=== PATIENT | male | born 2000 | race Caucasian/White ===

== ENCOUNTER 2021-01-05 13:18 | Emergency (ER) | payer OTHER ==
[~2021-01-05] VITALS: Ht 180.3 cm; Wt 68.0 kg
[2021-01-05 13:22] VITALS: BP 135/78
[2021-01-05 14:00] LABS: APPEARANCE,URINE Turbid (CLEAR); BILIRUBIN,URINE Negative (NEGATIVE); COLOR,URINE Yellow (YELLOW); GLUCOSE, URINE (UA) Negative (NEGATIVE); KETONES,URINE Trace mg/dL (NEGATIVE); LEUKOCYTE ESTERASE ,URINE Negative (NEGATIVE); NITRATE,URINE Negative (NEGATIVE); OCCULT BLOOD,URINE Negative (NEGATIVE); PH,URINE 7.5 (5.0-8.0); PROTEIN,URINE Negative (NEGATIVE)
[2021-01-05 14:19] LABS: AMORPHOUS SEDIMENT,UR Moderate /LPF (None Seen); BACTERIA,URINE Moderate /HPF (None Seen); RBC,URINE None Seen /HPF (0-1); SQUAMOUS EPITHELIAL CELL,UR None Seen /HPF (0-2); WBC,URINE 0-1 /HPF (0-1)
[2021-01-05 16:28] VITALS: BP 130/68
== END 2021-01-05 16:29 | disposition home or self-care (01) ==
LOC: EDH 13:18
DX: R33.9 Retention of urine, unspecified (principal); F41.9 Anxiety disorder, unspecified; Z88.1 Allergy status to other antibiotic agents
CPT/HCPCS: 81001; 87088

== ENCOUNTER 2022-07-01 11:26 | Emergency (ER) | payer OTHER ==
[~2022-07-01] VITALS: Ht 180.3 cm; Wt 63.5 kg
[2022-07-01 11:29] VITALS: BP 137/72
== END 2022-07-01 13:32 | disposition home or self-care (01) ==
LOC: EDH 11:26
DX: G89.29 Other chronic pain (principal); M54.9 Dorsalgia, unspecified
CPT/HCPCS: 99281

== ENCOUNTER 2024-03-05 11:24 | Emergency (ER) | payer SELFPAY ==
[~2024-03-05] VITALS: Ht 180.3 cm; Wt 70.3 kg
[2024-03-05 11:35] VITALS: BP 120/79; PULSE 74; RESP 18; TEMP 98.2
[2024-03-05] MEDS: HYDROcodone/APAP 5/325 1 TAB TABLET PO STA (12:17)
[2024-03-05] MEDS: dexaMETHasone SOD PHOSPHATE 4 MG/ML 1ML VIAL IVP STA (12:17)
[2024-03-05] MEDS: methoCARBamol 500 MG TABLET PO STA (12:17)
[2024-03-05] MEDS: ketOROlac 15MG/ML VIAL (15MG/ML) IM STA (12:18)
[2024-03-05] MEDS ORDERED: METH-811 PO (13:18)
[2024-03-08] MEDS ORDERED: ACET-66 PO (12:16)
[2024-03-08] MEDS ORDERED: IBUP-2077 PO (20:29)
[2024-03-08] MEDS ORDERED: CLIN-141 PO (20:29)
== END 2024-03-05 14:07 | disposition home or self-care (01) ==
LOC: EDH 11:24
DX: G89.29 Other chronic pain (principal); M54.2 Cervicalgia; M54.89 Other dorsalgia; Z88.8 Allergy status to other drugs, medicaments and biological substances
CPT/HCPCS: 99284; 96374; 96372; J1100; J1885

== ENCOUNTER 2024-05-07 21:16 | Emergency (ER) | payer SELFPAY ==
[~2024-05-07] VITALS: Ht 180.3 cm; Wt 74.8 kg
[~2024-05-07 21:16] MED LIST: ACET-66 PO; CLIN-141 PO; IBUP-2077 PO; METH-811 PO
[2024-05-07] MEDS: acetaMINOPHEN 500 MG TABLET PO ONE (22:47)
[2024-05-07] MEDS: ORPHENADRINE 60MG/2ML IM ONE (22:48)
[2024-05-07] MEDS: TRIAMCINOLONE ACETONIDE 40 MG/ML 1ML VIAL IM ONE (22:48)
--- NOTE | 2024-05-07 23:04 | NUR ---
TRANSFERED CARE TO [facility] AT THIS TIME
--- NOTE | 2024-05-07 23:40 | ERN ---
ED Note History of Present Illness Stated Complaint: C/O BACK AND NECK PAIN Chief Complaint: Back Pain or Injury Time Seen by MD: 21:24 Time Seen by Midlevel: 21:24 Dictation: The patient is a 23-year-old male with a history of TBI who presents to the emergency department with complaints of low back pain, low neck pain, upper back pain onset two days ago. Patient reports he had an accident six years ago that caused him to have chronic pain but pain became worse two days ago. Patient denies any recent injury or trauma. Patient reports he has pain everyday since the accident. States he follows up in [place] or if they done multiple exams and MRIs. They told him he had a problem with his lower back. Patient denies any fecal or urinary incontinence. Denies any other complaints. Allergies: Coded Allergies: ceftriaxone (Unverified Allergy, Unknown, 01/05/21) Home Meds Active Scripts Ibuprofen (Ibuprofen 800 mg Tab) 800 Mg Tab, 800 MG PO Q8H PRN for fever or pain, #30 TAB 0 Refills Prov:IAM MONTERROSO NP 03/08/24 Clindamycin HCl (Clindamycin HCl) 300 Mg Capsule, 1 CAP PO QID for 10 Days, #40 CAP 0 Refills Prov:IAM MONTERROSO NP 03/08/24 Acetaminophen (Tylenol) 500 Mg Tab, 1 TAB PO Q6HPRN PRN for pain or fever for 5 Days, #30 TAB 0 Refills Prov:CARIN NOLAN MD 03/08/24 Methocarbamol (Methocarbamol) 500 Mg Tablet, 1 TAB PO TID for 10 Days, #30 TAB 0 Refills Prov:ARIADNA LEE NP 03/05/24 Past Medical History Past Medical History: Asthma Additional Past Medical Hx: BACK AND NECK PAIN Surgical History: Other Surgical History Other: None Social History: Lives with family RN Note Reviewed/Agreed w/PFSH: Yes Review of System Dictation Constitutional: Negative for fever,chills, and weight loss Eyes: Negative for injury, pain,redness, and discharge ENT: Negative for injury,pain or swelling Cardiovascular: Negative for chest pain, palpitations, and edema Respiratory: Negative for shortness of breath, cough, and wheezing, Abdomen/GI: Negative for abdominal pain, nausea, vomiting, diarrhea, and constipation Back: Negative for injury and pain : Negative for injury, bleeding and discharge MS/Extremity: Negative for injury and deformity positive for low back pain Skin: Negative for rash, and discoloration Neuro: Negative for headache, weakness, numbness, tingling, and seizure Psych: Negative for suicide ideation, homicidal ideation, and hallucinations Initial Vital Sign VS Vital Signs Date Time Temp Pulse Resp B/P (MAP) Pulse Ox O2 Delivery O2 Flow Rate FiO2 05/07/24 21:20 98.4 82 20 144/94 99 Room Air 05/07/24 21:42 0 21 Physical Exam Dictation Vital Signs reviewed General Appearance: Alert, oriented x 3, no acute distress, well developed, nourished. Head and Face: non-traumatic. Eyes: PERRL, pink conjunctivas, eyelid no trauma, anterior chamber with arcus s enilis. Ears: Pinnas intact and no signs of trauma or erythema ear canals clear and no discharge TM no erythema Nose: No discharge, no bleeding. Oropharynx: Mouth normal, tongue pink. pharynx clear,no erythema, tonsils no exudates, no abscesses noted, mucous membrane moist Neck: Supple, non-tender, no thyromegaly, no masses, no JVD, no bruits Breast:Deferred Chest:No tenderness, no crepitus, no paradoxical movement, no retractions Lungs:Clear, well-ventilated, symmetric, no rales, no wheezing, no rhonchi, no stridor, good breath sounds bilaterally Heart: Regular rate, regular rhythm, no murmur, no gallops Vascular: no peripheral edema, dorsalis pedis 3+ bilaterally Abdomen: Soft, positive bowel sounds, nondistended, no guarding, nontender, no rebound, no masses no hepatomegaly, no splenomegaly, no Moreira's sign, no hernias. Rectal: Deferred Genital: Deferred Neurological: Normal speech, motor function intact, sensory function intact Musculoskeletal: Neck nontender, full range of motion, back nontender, full range of motion, no deformities, Extremities: nontender, full range of motion Skin: Color pink, dry, no turgor, no rash, no lacerations, no abrasions, no contusions. Lymphatic: Deferred Results (Laboratory/Radiology) Labs Reviewed?: Yes ED Course ED Course Orders Procedure Category Date Status Time Orphenadrine Citrate PHA 05/07/24 Complete (Norflex) 22:00 Triamcinolone Acet PHA 05/07/24 Complete 40mg/Ml 1ml (Kenalog 22:00 Acetaminophen 500mg PHA 05/07/24 Complete Tab (Tylenol 500mg T 22:00 Current Medications Medications (Trade) Dose Ordered Sig/Dwayne Route PRN Reason Start Time Stop Time Status Last Admin Dose Admin Acetaminophen (TYLenol 500MG TAB) 1,000 mg ONCE ONCE PO 05/07/24 22:00 05/07/24 22:07 DC 05/07/24 22:47 Orphenadrine Citrate (Norflex) 60 mg ONCE ONCE IM 05/07/24 22:00 05/07/24 22:07 DC 05/07/24 22:48 Triamcinolone Acetonide (Kenalog 40) 40 mg ONCE ONCE IM 05/07/24 22:00 05/07/24 22:07 DC 05/07/24 22:48 Vital Signs Date Time Temp Pulse Resp B/P (MAP) Pulse Ox O2 Delivery O2 Flow Rate FiO2 05/07/24 23:42 98.2 59 17 130/90 99 Room Air* 0 21 05/07/24 21:42 98.4 82 16 144/94 98 Room Air* 0 21 05/07/24 21:20 98.4 82 20 144/94 99 Room Air Medical Decision Making MDM The patient is a 23-year-old male with a history of TBI who presents to the emergency department with complaints of low back pain, low neck pain, upper back pain onset two days ago. Patient reports he had an accident six years ago that caused him to have chronic pain but pain became worse two days ago. Patient denies any recent injury or trauma. Patient reports he has pain everyday since the accident. States he follows up in [place] or if they done multiple exams and MRIs. They told him he had a problem with his lower back. Patient denies any fecal or urinary incontinence. Denies any other complaints. Patient with chronic back pain. No acute trauma. Patient has been here multiple times for same complaint. Patient reports pain is improving. Continues in no distress. Agrees to be discharged and follow up with PCP and pain management in [place]. Differential diagnosis: Chronic back pain, sciatic nerve pain, muscle spasm Need for hospitalization: Patient does not meet criteria for hospitalization. There are no social concerns with this patient. DX & DISP Disposition: Discharge Departure Impression: Primary Impression: Chronic back pain Condition: Stable Additional Instructions: Please follow up with your primary doctor in 1-2 days. Follow up with your specialists FOLLOW-UP WITH PRIMARY CARE PROVIDER IN 1 TO 2 DAYS. TAKE MEDICATIONS DIRECTED HERE IN THE EMERGENCY ROOM. OKAY TO CONTINUE HOME MEDICATIONS UNLESS OTHERWISE DISCUSSED DURING YOUR VISIT IN THE EMERGENCY ROOM TODAY. RETURN TO YOUR NEAREST EMERGENCY ROOM IF SYMPTOMS WORSEN OR IF THERE IS NO IMPROVEMENT. CALL 911 IF YOU NEED IMMEDIATE ASSISTANCE. TAKE TYLENOL [id number] NEEDED AND IF NO CONTRAINDICATIONS ARE PRESENT. INCREASE ORAL HYDRATION. A WOUND CULTURE OR URINE CULTURE WAS ORDERED HERE IN THE EMERGENCY ROOM DEPARTMENT PLEASE FOLLOW-UP WITH PRIMARY CARE PROVIDER AND ADVISE THEM TO GET REPEAT PORTS FROM OUR FACILITY. IF YOU HAD ANY SANJAY WRAP/SPLINTS THAT WERE APPLIED HERE, PLEASE DO NOT REMOVE THEM UNTIL YOU SEE YOUR PRIMARY CARE OR SPECIALTY. Referrals: SELF,REFERRAL (PCP) Time of Disposition: 23:38 I have reviewed the case, and I agree with, Diagnosis and Plan ATTESTATION BY PHYSICIAN I PERFORMED THE SUBSTANTIVE PORTION OF THE VISIT. I HAVE REVIEWED AND PERSONALLY MADE AND APPROVED THE MANAGEMENT PLAN THAT IS DOCUMENTED IN THE NOTE BY MYSELF FOR THE A PP. I ACKNOWLEDGED FOR RESPONSIBILITY FOR THE PATIENT'S MANAGEMENT PLAN. TAWANNA RODRIGUEZ May 07, 2024 23:40 CARIN NOLAN MD May 09, 2024 19:42
[2024-05-07 23:42] VITALS: BP 130/90; PULSE 59; RESP 17; TEMP 98.3; O2SAT 99
== END 2024-05-08 00:25 | disposition home or self-care (01) ==
LOC: EDH 21:16
DX: G89.29 Other chronic pain (principal); M54.50 Low back pain, unspecified; J45.909 Unspecified asthma, uncomplicated; Z79.899 Other long term (current) drug therapy; Z88.1 Allergy status to other antibiotic agents; Z98.890 Other specified postprocedural states
CPT/HCPCS: 99284; 96372 ×2; J3301; J2360

== ENCOUNTER 2024-11-05 11:53 | Emergency (ER) | payer SELFPAY ==
[~2024-11-05] VITALS: Ht 180.3 cm; Wt 77.1 kg
[2024-11-05 11:58] VITALS: BP 130/70; PULSE 65; RESP 20; TEMP 99; O2SAT 98
[2024-11-05] MEDS ORDERED: ALBU18HF7 IH (12:10)
--- NOTE | 2024-11-05 12:10 | ERN ---
General Chief Complaint: Adult-Asthma Stated Complaint: ASTHMA Time Seen by MD: 11:54 Source: patient History of Present Illness Initial Comments Patient is a 24-year-old male coming in to be evaluated for asthma exacerbation. Per patient he ran out of his inhaler in his here for further evaluation. Patient states he has not followed up with the PCP yet. Allergies: Coded Allergies: ceftriaxone (Unverified Allergy, Unknown, 01/05/21) Home Meds Active Scripts Ibuprofen (Ibuprofen 800 mg Tab) 800 Mg Tab, 800 MG PO Q8H PRN for fever or pain, #30 TAB 0 Refills Prov:IAM MONTERROSO NP 03/08/24 Clindamycin HCl (Clindamycin HCl) 300 Mg Capsule, 1 CAP PO QID for 10 Days, #40 CAP 0 Refills Prov:IAM MONTERROSO NP 03/08/24 Acetaminophen (Tylenol) 500 Mg Tab, 1 TAB PO Q6HPRN PRN for pain or fever for 5 Days, #30 TAB 0 Refills Prov:CARIN NOLAN MD 03/08/24 Methocarbamol (Methocarbamol) 500 Mg Tablet, 1 TAB PO TID for 10 Days, #30 TAB 0 Refills Prov:ARIADNA LEE NP 03/05/24 Past Medical History Past Medical History: Asthma Medical History Other: BACK AND NECK PAIN Past Surgical History: None Surgical History Other: None Social History Social History: Lives with family ROS Dictation CONSTITUTIONAL: No chills, no fever, no weakness, no diaphoresis, no malaise. HEAD/FACE: No signs of trauma. EENT: No eye pain, no blurred vision, no tearing, no double vision, no ear pain, no ear discharge, no nose pain, no nasal congestion, no throat pain, no throat swelling, no mouth pain. RESPIRATORY: No cough, no orthopnea, no SOB, no stridor, no wheezing. CARDIOVASCULAR: No chest pain, no edema, no palpitations, no syncope. GASTROINTESTINAL/ABDOMINAL: No abdominal pain, no constipation, no diarrhea, no nausea, no vomiting. GENITOURINARY: No abnormal discharge, no dysuria, no frequent urination, no hematuria. No complaints of pain in the genitals. MUSCULOSKELETAL: No back pain, no gout, no joint pain, no joint swelling, no muscle pain, no muscle stiffness, no neck pain. INTEGUMENTARY: No change in color, no change in hair/nails, no dryness, no lesion, no lumps, no rash. NEUROLOGICAL/PSYCH: No anxiety, not depressed, no emotional problem, no headache, no numbness, no pre-existing deficit, no history of seizures, no tremors, no weakness. HEMATOLOGIC/LYMPHATIC: Not anemic, no history of blood clots, no apparent bleeding, no bruising, glands not swollen. All Systems Negative, Except as Noted. Physical Exam Physical Exam Dictation VITAL SIGNS: Reviewed. GENERAL APPEARANCE: Alert, oriented x3, no acute distress, obese. HEAD AND FACE: Non-traumatic. EYES: PERRL, pink conjunctivas, eyelid no trauma, anterior chamber clear. EARS: Pinnas intact and no signs of trauma or erythema. Ear canals clear and no discharge. TMs no erythema. NOSE: No discharge, no bleeding. OROPHARYNX: Mouth normal, teeth no caries, tongue pink. Pharynx clear, no erythema. Tonsils no exudates, no abscesses noted. Mucous membrane moist. NECK: Supple, non-tender, no thyromegaly, no masses, no JVD, no bruits. BREAST: Deferred. CHEST: No tenderness, no crepitus, no paradoxical movement, no retractions. LUNGS: Clear, well-ventilated, symmetric, no rales, no wheezing, no rhonchi, no stridor, good breath sounds bilaterally. HEART: Regular rate, regular rhythm, no murmur, no gallops. VASCULAR: No peripheral edema. ABDOMEN: Soft, positive bowel sounds, nondistended, no guarding, nontender, no rebound, no masses no hepatomegaly, no splenomegaly, no Moreira's sign, no hernias. RECTAL: Deferred. GENITAL: Deferred. NEUROLOGICAL: Normal speech, gross motor function intact, gross sensory function intact. MUSCULOSKELETAL: Neck nontender, full range of motion, back nontender, full range of motion. EXTREMITIES: Nontender, full range of motion. SKIN: Color pink, dry, no turgor, no rash, no lacerations, no abrasions, no contusions. LYMPHATICS: Deferred. MDM MDM: Differential diagnosis: Asthma history, medication refill, Rationale: Tests considered and ordered secondary to shared decision making include: Previous outside records reviewed: Old ER visits. Risk of complication and/or morbidity or mortality of patient management: None Medications-Per medication reconciliation Need for hospitalization: Patient does not meet criteria for hospitalization. Patient is a 24-year-old male coming in due to medication refill. Per patient he ran out of his inhaler and states he does has a history of asthma. Patient will be discharged in stable condition medication will be provided it did educate him on proper follow up PCP for long-term management of chronic conditions such as asthma. ED Course Orders Procedure Category Date Status Time Dexamethasone 4mg/Ml PHA 11/05/24 Complete 1ml Vial (Dexametha 12:00 Current Medications Medications (Trade) Dose Ordered Sig/Dwayne Route PRN Reason Start Time Stop Time Status Last Admin Dose Admin Dexamethasone Sodium Phosphate (dexaMETHasone 4MG/ML 1ML VIAL) 4 mg ONCE ONCE IM 11/05/24 12:00 11/05/24 12:01 DC Vital Signs Date Time Temp Pulse Resp B/P (MAP) Pulse Ox O2 Delivery O2 Flow Rate FiO2 11/05/24 11:58 99.0 65 20 130/70 98 Room Air* 0 21 11/05/24 11:53 99.0 69 20 133/71 99 Room Air 0 DX & DISP Disposition: Discharge Departure Impression: Primary Impression: History of asthma Additional Impression: Medication refill Condition: Stable Scripts Albuterol Sulfate (Ventolin Hfa) 90 Mcg Hfa.aer.ad 2 PUFF IH Q4HPRN PRN for wheezing for 30 Days, #18 GM 0 Refills Prov: CARIN NOLAN MD 11/05/24 Additional Instructions: FOLLOW-UP WITH PRIMARY CARE PROVIDER IN 1 TO 2 DAYS. TAKE MEDICATIONS DIRECTED HERE IN THE EMERGENCY ROOM. OKAY TO CONTINUE HOME MEDICATIONS UNLESS OTHERWISE DISCUSSED DURING YOUR VISIT IN THE EMERGENCY ROOM TODAY. RETURN TO YOUR NEAREST EMERGENCY ROOM IF SYMPTOMS WORSEN OR IF THERE IS NO IMPROVEMENT. CALL 911 IF YOU NEED IMMEDIATE ASSISTANCE. TAKE TYLENOL [id number] NEEDED AND IF NO CONTRAINDICATIONS ARE PRESENT. INCREASE ORAL HYDRATION. A WOUND CULTURE OR URINE CULTURE WAS ORDERED HERE IN THE EMERGENCY ROOM DEPARTMENT PLEASE FOLLOW-UP WITH PRIMARY CARE PROVIDER AND ADVISE THEM TO GET REPORTS FROM OUR FACILITY. IF YOU HAD ANY SANJAY WRAP/SPLINTS THAT WERE APPLIED HERE, PLEASE DO NOT REMOVE THEM UNTIL YOU SEE YOUR PRIMARY CARE OR SPECIALTY. Referrals: Referrals: SELF,REFERRAL (PCP) TORRI PENNINGTON MD Time of Disposition: 12:09 CARIN NOLAN MD Nov 05, 2024 12:10
--- NOTE | 2024-11-05 12:23 | NUR ---
unable to depart due to reg process
--- NOTE | 2024-11-05 12:49 | NUR ---
still unable to depart due to reg process
== END 2024-11-05 12:19 | disposition home or self-care (01) ==
LOC: EDH 11:53
DX: J45.901 Unspecified asthma with (acute) exacerbation (principal); Z76.0 Encounter for issue of repeat prescription; Z88.1 Allergy status to other antibiotic agents; Z79.899 Other long term (current) drug therapy
CPT/HCPCS: 99283; 96372; J1100

== ENCOUNTER 2024-11-29 16:55 | Emergency (ER) | payer SELFPAY ==
[~2024-11-29] VITALS: Ht 180.3 cm; Wt 77.1 kg
[~2024-11-29 16:55] MED LIST changes: +ALBU18HF7 IH
[2024-11-29 17:01] VITALS: BP 128/76; PULSE 72; RESP 16; TEMP 98.2; O2SAT 100
--- NOTE | 2024-11-29 17:07 | ERN ---
ED Note History of Present Illness Stated Complaint: TOOTHACHE Chief Complaint: Tooth Ache/Pain Time Seen by MD: 16:58 Dictation: PATIENT IS A 24-YEAR-OLD MALE COMING IN WITH COMPLAINTS OF A LEFT UPPER MOLAR PAIN AND TOOTHACHE HE HAS HAD FOR SEVERAL DAYS. NO FEVER NO CHILLS NO NAUSEA VOMITING. NO HISTORY OF DIABETES. NO PRIMARY CARE DOCTOR. STATES HE TOOK A LEAVE EARLIER THIS MORNING IN HIS USING [id number] Allergies: Coded Allergies: ceftriaxone (Unverified Allergy, Unknown, 01/05/21) Home Meds Active Scripts Albuterol Sulfate (Ventolin Hfa) 90 Mcg Hfa.aer.ad, 2 PUFF IH Q4HPRN PRN for wheezing for 30 Days, #18 GM 0 Refills Prov:CARIN NOLAN MD 11/05/24 Ibuprofen (Ibuprofen 800 mg Tab) 800 Mg Tab, 800 MG PO Q8H PRN for fever or pain, #30 TAB 0 Refills Prov:IAM MONTERROSO NP 03/08/24 Clindamycin HCl (Clindamycin HCl) 300 Mg Capsule, 1 CAP PO QID for 10 Days, #40 CAP 0 Refills Prov:IAM MONTERROSO NP 03/08/24 Acetaminophen (Tylenol) 500 Mg Tab, 1 TAB PO Q6HPRN PRN for pain or fever for 5 Days, #30 TAB 0 Refills Prov:CARIN NOLAN MD 03/08/24 Methocarbamol (Methocarbamol) 500 Mg Tablet, 1 TAB PO TID for 10 Days, #30 TAB 0 Refills Prov:ARIADNA LEE NP 03/05/24 Past Medical History Past Medical History: Asthma, Other Additional Past Medical Hx: BACK AND NECK PAIN Surgical History: Tonsillectomy, None Surgical History Other: None Social History: Lives with family RN Note Reviewed/Agreed w/PFSH: Yes Review of System Dictation CONSTITUTIONAL: NEGATIVE EXCEPT FOR HPI HEAD/FACE: NEGATIVE EXCEPT FOR HPI EENT: NEGATIVE EXCEPT FOR HPI MOLAR PAIN WITH DECAY RESPIRATORY: NEGATIVE EXCEPT FOR HPI GASTROINTESTINAL/ABDOMINAL: NEGATIVE EXCEPT FOR HPI GENITOURINARY: NEGATIVE EXCEPT FOR HPI MUSCULOSKELETAL: NEGATIVE EXCEPT FOR HPI INTEGUMENTARY: NEGATIVE EXCEPT FOR HPI NEUROLOGICAL/PSYCH: NEGATIVE EXCEPT FOR HPI HEMATOLOGIC/LYMPHATIC: NEGATIVE EXCEPT FOR HPI ALL SYSTEMS NEGATIVE, EXCEPT NOTED ABOVE. 13 POINT REVIEW OF SYSTEMS ASSESSED AND ALL NEGATIVE EXCEPT FOR ABOVE. Initial Vital Sign VS Vital Signs Date Time Temp Pulse Resp B/P (MAP) Pulse Ox O2 Delivery O2 Flow Rate FiO2 11/29/24 16:56 98.4 78 16 128/76 100 Room Air 0 11/29/24 17:01 21 Physical Exam Dictation VITAL SIGNS REVIEWED GENERAL APPEARANCE: ALERT, ORIENTED X 3, MODERATE ACUTE DISTRESS, WELL DEVELOPED, NOURISHED. HEAD AND FACE: NON-TRAUMATIC. EYES: PERRL, PINK CONJUNCTIVAS, EYELID NO TRAUMA, ANTERIOR CHAMBER WITH ARCUS SENILIS. EARS: PINNAS INTACT AND NO SIGNS OF TRAUMA OR ERYTHEMA EAR CANALS CLEAR AND NO DISCHARGE TM NO ERYTHEMA NOSE: NO DISCHARGE, NO BLEEDING. OROPHARYNX: MOUTH NORMAL, TONGUE PINK, DENTAL DECAY WITH A CARIES TOOTH 17. M ILD GINGIVAL ERYTHEMA PHARYNX CLEAR,NO ERYTHEMA, TONSILS NO EXUDATES, NO ABSCESSES NOTED, MUCOUS MEMBRANE MOIST NECK: SUPPLE, NON-TENDER, NO THYROMEGALY, NO MASSES, NO JVD, NO BRUITS BREAST:DEFERRED CHEST:NO TENDERNESS, NO CREPITUS, NO PARADOXICAL MOVEMENT, NO RETRACTIONS LUNGS:CLEAR, WELL-VENTILATED, SYMMETRIC, NO RALES, NO WHEEZING, NO RHONCHI, NO STRIDOR, GOOD BREATH SOUNDS BILATERALLY HEART: REGULAR RATE, REGULAR RHYTHM, NO MURMUR, NO GALLOPS VASCULAR: NO PERIPHERAL EDEMA, ABDOMEN: SOFT, POSITIVE BOWEL SOUNDS, NONDISTENDED, NO GUARDING, NONTENDER, NO REBOUND, NO MASSES NO HEPATOMEGALY, NO SPLENOMEGALY, NO NORTON'S SIGN, NO HERNIAS. RECTAL: DEFERRED GENITAL: DEFERRED NEUROLOGICAL: NORMAL SPEECH, MOTOR FUNCTION INTACT, SENSORY FUNCTION INTACT MUSCULOSKELETAL: NECK NONTENDER, FULL RANGE OF MOTION, BACK NONTENDER, FULL RANGE OF MOTION, EXTREMITIES: NONTENDER, FULL RANGE OF MOTION SKIN: COLOR PINK, DRY, NO TURGOR, NO RASH, NO LACERATIONS, NO ABRASIONS, NO CONTUSIONS. LYMPHATIC: DEFERRED Results (Laboratory/Radiology) Labs Reviewed?: Yes ED Course ED Course Orders Procedure Category Date Status Time Ibuprofen 800 Mg Tab PHA 11/29/24 Logged (Motrin) 17:30 Vital Signs Date Time Temp Pulse Resp B/P (MAP) Pulse Ox O2 Delivery O2 Flow Rate FiO2 11/29/24 17:01 98.2 72 16 128/76 100 Room Air* 0 21 11/29/24 16:56 98.4 78 16 128/76 100 Room Air 0 Medical Decision Making MDM MEDICAL DECISION-MAKING BASED ON EMPIRIC TREATMENT WITH PAIN FOR DENTAL CARIES AND INFECTION PATIENT GIVEN IBUPROFEN WE WILL BE DISCHARGED HOME WITH IBUPROFEN AND CLINDAMYCIN REFERRED TO HIS DENTIST OR TO GO TO [place] FOR DENTAL CARE. DX & DISP Disposition: Discharge Departure Impression: Primary Impression: Dental caries extending into pulp Condition: Stable Scripts Clindamycin HCl (Clindamycin HCl) 300 Mg Capsule 1 CAP PO QID for 10 Days, #40 CAP 0 Refills Prov: IAM MONTERROSO NP 11/29/24 Ibuprofen (Ibuprofen 800 mg Tab) 800 Mg Tab 800 MG PO Q8H PRN for fever or pain, #30 TAB 0 Refills Prov: IAM MONTERROSO NP 11/29/24 Additional Instructions: FOLLOW-UP WITH PRIMARY CARE PROVIDER IN 1 TO 2 DAYS. TAKE MEDICATIONS DIRECTED HERE IN THE EMERGENCY ROOM. OKAY TO CONTINUE HOME MEDICATIONS UNLESS OTHERWISE DISCUSSED DURING YOUR VISIT IN THE EMERGENCY ROOM TODAY. RETURN TO YOUR NEAREST EMERGENCY ROOM IF SYMPTOMS WORSEN OR IF THERE IS NO IMPROVEMENT. CALL 911 IF YOU NEED IMMEDIATE ASSISTANCE. TAKE TYLENOL OR MOTRIN [id number] NEEDED AND IF NO CONTRAINDICATIONS ARE PRESENT. INCREASE O RAL HYDRATION. A WOUND CULTURE OR URINE CULTURE WAS ORDERED HERE IN THE EMERGENCY ROOM DEPARTMENT PLEASE FOLLOW-UP WITH PRIMARY CARE PROVIDER AND ADVISE THEM TO GET REPEAT PORTS FROM OUR FACILITY. IF YOU HAD ANY SANJAY WRAP/SPLINTS THAT WERE APPLIED HERE, PLEASE DO NOT REMOVE THEM UNTIL YOU SEE YOUR PRIMARY CARE OR SPECIALTY. TAKE CLINDAMYCIN DIRECTED UNTIL GONE, START 1ST DOSE WITH TWO CAPSULES THEN TAKE ONE CAPSULE EVERY 6 HOURS DIRECTED UNTIL GONE. FOLLOW UP WITH THE YOUR LOCAL DENTIST OR GO TO [place] FOR DENTAL CARE. Referrals: SELF,REFERRAL (PCP) I have reviewed the case, and I agree with, Diagnosis and Plan IAM MONTERROSO NP Nov 29, 2024 17:07
== END 2024-11-29 17:18 | disposition home or self-care (01) ==
LOC: EDH 16:55
DX: K02.9 Dental caries, unspecified (principal); J45.909 Unspecified asthma, uncomplicated; Z88.1 Allergy status to other antibiotic agents; Z90.89 Acquired absence of other organs; Z98.890 Other specified postprocedural states; Z79.899 Other long term (current) drug therapy
CPT/HCPCS: 99283

== ENCOUNTER 2025-01-19 21:16 | Emergency (ER) | payer SELFPAY ==
[~2025-01-19] VITALS: Ht 180.3 cm; Wt 69.9 kg
[2025-01-19 21:18] VITALS: TEMP 98.5
--- NOTE | 2025-01-19 21:34 | ERN ---
ED Note History of Present Illness Stated Complaint: C/O TOOTHACHE WITH ABSCESS Chief Complaint: Abscess Time Seen by MD: 21:27 Dictation: This is a 24-year-old male who presented to the emergency room with complaints of right lower gums swelling and severe toothache in the lower molars on the right side. He stated that he has had pain in the right lower jaw teeth for the past few weeks and today as he was eating food he felt a small bump in the lower jaw gum area which burst open and he spit up all the food and cleaned his mouth with peroxide. And he noticed a white spot and hence he came in for further evaluation. Overall the symptoms of the right side lower jaw have been going on for about a month. No fever chills or rigors. He stated that there was some bleeding from the right gum area initially when it burst open. He has had problems with his teeth for a long time and in the past was seen here for left- sided molar problems. No eye swelling or facial swelling Temperature 98.5 pulse 63 respirations 20 blood pressure 143/82 pulse oximetry 99% on room air History of asthma mild intermittent, smoking dental caries Allergies: Coded Allergies: ceftriaxone (Unverified Allergy, Unknown, 01/05/21) Home Meds Active Scripts Ibuprofen (Ibuprofen) 800 Mg Tablet, 800 MG PO Q8H PRN for PAIN, #15 TAB 0 Refills Prov:BOONE DAWN MD 01/19/25 Chlorhexidine Gluconate (Peridex Oral Rinse) 0.12 % Mwsh, 15 ML PO BID for 14 Days, #473 ML 0 Refills Swish and spit Prov:BOONE DAWN MD 01/19/25 Clindamycin HCl (Clindamycin HCl) 300 Mg Capsule, 1 CAP PO QID for 10 Days, #40 CAP 0 Refills Prov:BOONE DAWN MD 01/19/25 Clindamycin HCl (Clindamycin HCl) 300 Mg Capsule, 1 CAP PO QID for 10 Days, #40 CAP 0 Refills Prov:IAM MONTERROSO NP 11/29/24 Ibuprofen (Ibuprofen 800 mg Tab) 800 Mg Tab, 800 MG PO Q8H PRN for fever or pain, #30 TAB 0 Refills Prov:IAM MONTERROSO NP 11/29/24 Albuterol Sulfate (Ventolin Hfa) 90 Mcg Hfa.aer.ad, 2 PUFF IH Q4HPRN PRN for wheezing for 30 Days, #18 GM 0 Refills Prov:CARIN NOALN MD 11/05/24 Ibuprofen (Ibuprofen 800 mg Tab) 800 Mg Tab, 800 MG PO Q8H PRN for fever or pain, #30 TAB 0 Refills Prov:IAM MONTERROSO [employer]ING [employer] 03/08/24 Clindamycin HCl (Clindamycin HCl) 300 Mg Capsule, 1 CAP PO QID for 10 Days, #40 CAP 0 Refills Prov:IAM MONTERROSO [employer]ING [employer] 03/08/24 Acetaminophen (Tylenol) 500 Mg Tab, 1 TAB PO Q6HPRN PRN for pain or fever for 5 Days, #30 TAB 0 Refills Prov:CARIN NOLAN MD 03/08/24 Methocarbamol (Methocarbamol) 500 Mg Tablet, 1 TAB PO TID for 10 Days, #30 TAB 0 Refills Prov:ARIADNA LEE NP 03/05/24 Past Medical History Past Medical History: Asthma Additional Past Medical Hx: BACK AND NECK PAIN Surgical History: Tonsillectomy Surgical History Other: None Family History: Negative Social History: Smokers, Lives with family RN Note Reviewed/Agreed w/PFSH: Yes Review of System Dictation Constitutional: Negative for fever,chills, and weight loss Eyes: Negative for injury, pain,redness, and discharge ENT: Negative for injury,pain or swelling positive for right lower molar tooth ache and small amount of purulent drainage from the gum area Cardiovascular: Negative for chest pain, palpitations, and edema Respiratory: Negative for shortness of breath, cough, and wheezing, Abdomen/GI: Negative for abdominal pain, nausea, vomiting, diarrhea, and constipation Back: Negative for injury and pain : Negative for injury, bleeding and discharge MS/Extremity: Negative for injury and deformity Skin: Negative for rash, and discoloration Neuro: Negative for headache, weakness, numbness, tingling, and seizure Psych: Negative for suicide ideation, homicidal ideation, and hallucinations Initial Vital Sign VS Vital Signs Date Time Temp Pulse Resp B/P (MAP) Pulse Ox O2 Delivery O2 Flow Rate FiO2 01/19/25 21:18 98.4 63 20 143/87 99 Room Air 01/19/25 21:18 0 21 Physical Exam Dictation General: awake, alert, NAD Head/Face: Normocephalic, atraumatic Eyes: PERRL, EOMI, vision at baseline ENT: oral cavity clear, TMs clear, positive signs of infection multiple cavities in the teeth both upper and lower jaw molar teeth. Right lower jaw 2nd molar had dental caries with a gum at the base of the molar had purulent drainage. Small amount of erythema is noted there is no facial swelling no tingling or numbness Neck: Trachea midline, supple, no nuchal rigidity Cardiovascular: RRR, normal S1/S2, No MRGs, no JVD Respiratory: CTAB, no respiratory distress, No rales or wheezes Abdomen: Soft, non-tender, non-distended, normal bowel sounds, no guarding or rebound. Skin: Warm, dry, normal turgor, no rash MS/Extremity: Pulses equal, no cyanosis, neurovascular intact, FROM Neuro: COAx4, GCS 15, strength 5/5, CN 2-12 intact, normal cerebellar exam, normal gait, Psych: Normal behavior, mood, and affect normal Extremities-trace edema without any palpable cords, Homans sign is negative Results (Laboratory/Radiology) Labs Reviewed?: Yes ED Course ED Course Orders Procedure Category Date Status Time Ketorolac PHA 01/19/25 Complete Tromethamine 15mg/Ml 22:00 Clindamycin 150mg Cap PHA 01/19/25 Complete (Cleocin 150mg Cap 22:00 Current Medications Medications (Trade) Dose Ordered Sig/Dwayne Route PRN Reason Start Time Stop Time Status Last Admin Dose Admin Clindamycin HCl (Cleocin 150mg Cap) 300 mg ONCE ONCE PO 01/19/25 22:00 01/19/25 22:01 DC 01/19/25 22:11 Ketorolac Tromethamine (toRADol) 15 mg ONCE ONCE IM 01/19/25 22:00 01/19/25 22:01 DC 01/19/25 22:11 Vital Signs Date Time Temp Pulse Resp B/P (MAP) Pulse Ox O2 Delivery O2 Flow Rate FiO2 01/19/25 22:24 66 18 131/84 99 Room Air* 0 21 01/19/25 21:18 98.4 63 20 143/87 99 Room Air* 0 21 01/19/25 21:18 98.4 63 20 143/87 99 Room Air We will administer medications according to the patient's complaint. Once the results are available, will review and personally interpreted the labs to rule out any acute life-threatening emergency the trach require immediate intervention and treatment. I will then re-evaluate the patient after treatment and diagnostic exams have return to determine whether the patient requires any further testing, can safely be discharged home or need further admission to hospital for additional treatment and evaluation. Medical Decision Making MDM Differential diagnosis: Periodontitis, dental caries, gingivitis, tooth abscess We will administer medications according to the patient's complaint. Once the results are available, will review and personally interpreted the labs to rule out any acute life-threatening emergency the trach require immediate intervention and treatment. I will then re-evaluate the patient after treatment and diagnostic exams have return to determine whether the patient requires any further testing, can safely be discharged home or need further admission to hospital for additional treatment and evaluation. I had a long discussion with the patient after my exam about the plan of care a nd antibiotic therapy and recommendations to see an oral surgeon. Rationale: Tests considered and ordered secondary to shared decision making include: Previous outside records reviewed: Old ER visits. Risk of complication and/or morbidity or mortality of patient management: None Medications-Per medication reconciliation Need for hospitalization: Patient does meet criteria for hospitalization. Need for emergency major/minor surgery: No There are no social concerns with this patient. Prescription drug management Prescriptions will include symptomatic care Patient's prior external medical records from other ER visits were reviewed by me as indicated. Prior testing and results from previous visits were reviewed. Prior tests were taken into account with medical decision making and resource utilization, independent historian/historians were used to obtain complete medical history. I independently interpreted the test that were performed, results were reviewed by me and considered findings on radiology if ordered. Medical management and examination interpretation discussions were had by me with other qualified healthcare professionals as indicated for the patient's care. Problem List Problem List: (1) Gingivitis (2) Tooth abscess (3) Dental caries extending into pulp DX & DISP Disposition: Discharge Departure Impression: Primary Impression: Dental caries extending into pulp Additional Impressions: Tooth abscess, Gingivitis Condition: Stable Scripts Ibuprofen (Ibuprofen) 800 Mg Tablet 800 MG PO Q8H PRN for PAIN, #15 TAB 0 Refills Prov: BOONE DAWN MD 01/19/25 Chlorhexidine Gluconate (Peridex Oral Rinse) 0.12 % Mwsh 15 ML PO BID for 14 Days, #473 ML 0 Refills Swish and spit Prov: BOONE DAWN MD 01/19/25 Clindamycin HCl (Clindamycin HCl) 300 Mg Capsule 1 CAP PO QID for 10 Days, #40 CAP 0 Refills Prov: BOONE DAWN MD 01/19/25 Additional Instructions: Patient and the caregiver have been informed of all the diagnostic tests and the imaging conducted during the today's visit to the emergency room and has verbalized understanding of the results I have personally reviewed and interpreted all diagnostic exams performed here in the ER today as well as the vital signs documented by the nursing staff. The patient is now being discharged to home and should follow up with the primary care physician or the specialist as directed by the ER staff. Follow-up with primary care provider in 1 to 2 days. Take medications as directed here in the emergency room. Okay to continue home medications unless otherwise discussed during your visit in the emergency room today. Return to your nearest emergency room if symptoms worsen or if there is no improvement. Call 911 if you need immediate assistance. Take Tylenol or Motrin [id number] as needed and if no contraindications are present. Increase oral hydration. A wound culture or urine culture was ordered here in the emergency room department please follow-up with primary care provider and advise them to get repeat ports from our facility. If you had any Chidi wrap/splints that were applied here, please do not remove them until you see your primary care or specialty. Referrals: SELF,REFERRAL (PCP) BOONE DAWN MD Jan 19, 2025 21:34
[2025-01-19] MEDS ORDERED: PERID15L PO (21:55)
[2025-01-19] MEDS ORDERED: IBUP-2071 PO (21:55)
[2025-01-19] MEDS ORDERED: CLIN-141 PO (21:55)
[2025-01-19] MEDS: CLINDAMYCIN 150 MG CAP PO ONE (22:11)
[2025-01-19 22:24] VITALS: BP 131/84; PULSE 66; RESP 18; O2SAT 99
== END 2025-01-19 22:36 | disposition home or self-care (01) ==
LOC: EDH 21:16
DX: K02.9 Dental caries, unspecified (principal); K04.7 Periapical abscess without sinus; K05.10 Chronic gingivitis, plaque induced; F17.200 Nicotine dependence, unspecified, uncomplicated; J45.909 Unspecified asthma, uncomplicated; Z88.1 Allergy status to other antibiotic agents; Z90.89 Acquired absence of other organs
CPT/HCPCS: 99283; 96372; J1885

== ENCOUNTER 2025-02-17 14:52 | Emergency (ER) | payer SELFPAY ==
[~2025-02-17] VITALS: Ht 180.3 cm; Wt 72.6 kg
[~2025-02-17 14:52] MED LIST changes: +IBUP-2071 PO; +PERID15L PO
[2025-02-17 15:18] VITALS: PULSE 56; RESP 18
--- NOTE | 2025-02-17 16:59 | HMCIMG ---
EXAM: CR Chest, 1 View. CLINICAL HISTORY: sob COMPARISON: None provided. FINDINGS: LUNGS: The lungs show no infiltrate or other acute finding. PLEURAL SPACES: No evidence of pleural effusion or pneumothorax. MEDIASTINUM: Cardiac size and mediastinal contours within normal limits. BONES: No aggressive appearing osseous lesion seen. IMPRESSION: No acute cardiopulmonary pathology is evident. /[place]
[2025-02-17] MEDS ORDERED: ALBUHFA IH (17:18)
--- NOTE | 2025-02-17 17:19 | ERN ---
ED Note History of Present Illness Stated Complaint: ASTHMA Chief Complaint: Adult-Asthma Time Seen by MD: 14:57 Time Seen by Midlevel: 15:00 Dictation: 24-year-old male with a history of asthma coming in with complaints of shortness a breath worse in the last couple of days. States he has been able to use his inhaler see ran out of the inhaler couple of weeks ago. Denies any sick contacts. Denies any fever, cough or congestion. Allergies: Coded Allergies: ceftriaxone (Unverified Allergy, Unknown, 01/05/21) Home Meds Active Scripts Ibuprofen (Ibuprofen) 800 Mg Tablet, 800 MG PO Q8H PRN for PAIN, #15 TAB 0 Refills Prov:BOONE DAWN MD 01/19/25 Chlorhexidine Gluconate (Peridex Oral Rinse) 0.12 % Mwsh, 15 ML PO BID for 14 Days, #473 ML 0 Refills Swish and spit Prov:BOONE DAWN MD 01/19/25 Clindamycin HCl (Clindamycin HCl) 300 Mg Capsule, 1 CAP PO QID for 10 Days, #40 CAP 0 Refills Prov:BOONE DAWN MD 01/19/25 Clindamycin HCl (Clindamycin HCl) 300 Mg Capsule, 1 CAP PO QID for 10 Days, #40 CAP 0 Refills Prov:IAM MONTERROSOP 11/29/24 Ibuprofen (Ibuprofen 800 mg Tab) 800 Mg Tab, 800 MG PO Q8H PRN for fever or pain, #30 TAB 0 Refills Prov:IAM MONTERROSOP 11/29/24 Albuterol Sulfate (Ventolin Hfa) 90 Mcg Hfa.aer.ad, 2 PUFF IH Q4HPRN PRN for wheezing for 30 Days, #18 GM 0 Refills Prov:CARIN NOLAN MD 11/05/24 Ibuprofen (Ibuprofen 800 mg Tab) 800 Mg Tab, 800 MG PO Q8H PRN for fever or pain, #30 TAB 0 Refills Prov:IAM MONTERROSOP 03/08/24 Clindamycin HCl (Clindamycin HCl) 300 Mg Capsule, 1 CAP PO QID for 10 Days, #40 CAP 0 Refills Prov:IAM MONTERROSOP 03/08/24 Acetaminophen (Tylenol) 500 Mg Tab, 1 TAB PO Q6HPRN PRN for pain or fever for 5 Days, #30 TAB 0 Refills Prov:CARIN NOLAN MD 03/08/24 Methocarbamol (Methocarbamol) 500 Mg Tablet, 1 TAB PO TID for 10 Days, #30 TAB 0 Refills Prov:ARIADNA LEE 03/05/24 Past Medical History Past Medical History: Asthma Additional Past Medical Hx: CHRONIC BACK PAIN Surgical History: Tonsillectomy Surgical History Other: None Family History: Negative Social History: Smokers, Lives with family Review of System Dictation Constitutional: Negative for fever,chills, and weight loss Eyes: Negative for injury, pain,redness, and discharge ENT: Negative for injury,pain or swelling Cardiovascular: Negative for chest pain, palpitations, and edema Respiratory: complaining of shortness a breath and wheezing Abdomen/GI: Negative for abdominal pain, nausea, vomiting, diarrhea, and constipation Back: Negative for injury and pain : Negative for injury, bleeding and discharge MS/Extremity: Negative for injury and deformity Skin: Negative for rash, and discoloration Neuro: Negative for headache, weakness, numbness, tingling, and seizure Psych: Negative for suicide ideation, homicidal ideation, and hallucinations Review of Systems: was completed Initial Vital Sign VS Vital Signs Date Time Temp Pulse Resp B/P (MAP) Pulse Ox O2 Delivery O2 Flow Rate FiO2 02/17/25 14:56 98.2 61 18 128/74 99 Room Air 0 Physical Exam Dictation General: awake, alert, NAD Head/Face: Normocephalic, atraumatic Eyes: PERRL, EOMI, vision at baseline ENT: oral cavity clear, TMs clear, no signs of infection Neck: Trachea midline, supple, no nuchal rigidity Cardiovascular: RRR, normal S1/S2, No MRGs, no JVD Respiratory: CTAB, no respiratory distress, No rales or wheezes Abdomen: Soft, non-tender, non-distended, normal bowel sounds, no guarding or rebound. Skin: Warm, dry, normal turgor, no rash MS/Extremity: Pulses equal, no cyanosis, neurovascular intact, FROM Neuro: COAx4, GCS 15, strength 5/5, CN 2-12 intact, normal cerebellar exam, normal gait, Psych: Normal behavior, mood, and affect normal Results (Laboratory/Radiology) X-RAY Comment: [facility] [address] [place] [address] IMAGING REPORT Signed PATIENT: GIANCARLO MORENO MR#: [id number] : 2000 SEX: M AGE: 24 LOCATION: [facility] ORDER 1501 STATUS: REG ER REPORT#: [id number] SERVICE 1500 REASON: sob ORDERING PHYSICIAN: ARIADNA LEE PROCEDURE: CXR1VW - CHEST 1VW EXAM: CR Chest, 1 View. CLINICAL HISTORY: sob COMPARISON: None provided. FINDINGS: LUNGS: The lungs show no infiltrate or other acute finding. PLEURAL SPACES: No evidence of pleural effusion or pneumothorax. MEDIASTINUM: Cardiac size and mediastinal contours within normal limits. BONES: No aggressive appearing osseous lesion seen. IMPRESSION: No acute cardiopulmonary pathology is evident. /[place] DICTATED BY: DAMIAN BAZZI MD DATE: 02/17/251757 ELECTRONICALLY SIGNED BY: DAMIAN BAZZI MD DATE: 02/17/251757 ED Course ED Course Orders Procedure Category Date Status Time Chest 1vw RAD 02/17/25 Resulted 15:00 Methylprednisolone PHA 02/17/25 Complete Succ 125mg (Solu-Medr 15:00 Ipratropium/Albuterol PHA 02/17/25 Complete Neb (Duoneb) 15:00 Current Medications Medications (Trade) Dose Ordered Sig/Dwayne Route PRN Reason Start Time Stop Time Status Last Admin Dose Admin Albuterol (DUOneb) 1 UDVIAL ONCE ONCE IH 02/17/25 15:00 02/17/25 15:03 DC 02/17/25 15:18 Methylprednisolone Sodium Succinate (Solu-medROL 125MG) 125 mg ONCE ONCE IVP 02/17/25 15:00 02/17/25 15:03 DC Vital Signs Date Time Temp Pulse Resp B/P (MAP) Pulse Ox O2 Delivery O2 Flow Rate FiO2 02/17/25 15:18 56 18 02/17/25 14:56 98.2 61 18 128/74 99 Room Air 0 Medical Decision Making MDM MDM: 24-year-old male with a history of asthma coming in with complaints of shortness a breath worse in the last couple of days. States he has been able to use his inhaler see ran out of the inhaler couple of weeks ago. Denies any sick contacts. Denies any fever, cough or congestion. Differential diagnosis: Asthma exacerbation, bronchitis, viral syndrome Rationale: Tests considered and ordered secondary to shared decision making include: Previous outside records reviewed: Old ER visits. Risk of complication and/or morbidity or mortality of patient management: None Medications-Per medication reconciliation Need for hospitalization: Patient does not meet criteria for hospitalization. Need for emergency major/minor surgery: No There are no social concerns with this patient. Prescription drug management Prescriptions will include symptomatic care Patient's prior external medical records from other ER visits were reviewed by me as indicated. Prior testing and results from previous visits were reviewed. Prior tests were taken into account with medical decision making and resource utilization, independent historian/historians were used to obtain complete medical history. I independently interpreted the test that were performed, results were reviewed by me and considered findings on radiology if ordered. Medical management and examination interpretation discussions were had by me with other qualified healthcare professionals as indicated for the patient's care. DX & DISP Disposition: Discharge Departure Impression: Primary Impression: History of asthma Condition: Stable Scripts Albuterol Sulfate (Ventolin Hfa/Proventil Hfa/Proair Hfa) 90 Mcg Puff 1 PUFF IH Q4H PRN for SHORTNESS OF BREATH for 5 Days, #1 INH 0 Refills PHARMACY TO DISPENSE 1 INHALER FOR USE Prov: ARIADNA LEE 02/17/25 Referrals: SELF,REFERRAL (PCP) Time of Disposition: 17:18 I have reviewed the case, and I agree with, Diagnosis and Plan ARIADNA LEE Feb 17, 2025 17:19
[2025-02-17 17:23] VITALS: BP 122/83; PULSE 55; RESP 18; TEMP 98.5; O2SAT 100
== END 2025-02-17 17:33 | disposition home or self-care (01) ==
LOC: EDH 14:52
DX: J45.909 Unspecified asthma, uncomplicated (principal); F17.200 Nicotine dependence, unspecified, uncomplicated; G89.29 Other chronic pain; Z88.1 Allergy status to other antibiotic agents; Z90.89 Acquired absence of other organs; Z79.899 Other long term (current) drug therapy; Z79.2 Long term (current) use of antibiotics
CPT/HCPCS: 71045; 94640; 99283

== ENCOUNTER 2025-03-18 19:05 | Emergency (ER) | payer SELFPAY ==
[~2025-03-18] VITALS: Ht 180.3 cm; Wt 72.6 kg
[~2025-03-18 19:05] MED LIST changes: +ALBUHFA IH; +DOXY100C5 PO; +HYDR28GE5 TP
[2025-03-18] MEDS ORDERED: ALBU90AE IH (20:39)
--- NOTE | 2025-03-18 20:43 | ERN ---
General Chief Complaint: Adult-Asthma Stated Complaint: REQUESTING INHALER Time Seen by MD: 19:51 Time Seen by Midlevel: 19:51 Source: patient History of Present Illness Initial Comments 24-year-old male with a past medical history of asthma is here today requesting refill on his prescription for his inhaler. Denies any symptoms at this time. Allergies: Coded Allergies: ceftriaxone (Unverified Allergy, Unknown, 01/05/21) Home Meds Active Scripts Albuterol Sulfate (Proair Respiclick) 90 Mcg Aer.pow.ba, 2 PUFF IH Q4HPRN PRN for shortness of breath, #1 EACH 0 Refills Prov:TORRI FONTANEZ 03/18/25 Doxycycline Hyclate (Doxycycline Hyclate) 100 Mg Capsule, 1 CAP PO BID for 10 Days, #20 CAP 0 Refills Prov:CARIN NOLAN MD 03/13/25 Hydrocortisone (Cortizone 10) 1 % Gel..gram., 28 GM TP BID for 7 Days, #1 TUBE Prov:CARIN NOLAN MD 03/13/25 Albuterol Sulfate (Ventolin Hfa/Proventil Hfa/Proair Hfa) 90 Mcg Puff, 1 PUFF IH Q4H PRN for SHORTNESS OF BREATH for 5 Days, #1 INH 0 Refills PHARMACY TO DISPENSE 1 INHALER FOR USE Prov:ARIADNA LEE CNP 02/17/25 Ibuprofen (Ibuprofen) 800 Mg Tablet, 800 MG PO Q8H PRN for PAIN, #15 TAB 0 Refills Prov:BOONE DAWN MD 01/19/25 Chlorhexidine Gluconate (Peridex Oral Rinse) 0.12 % Mwsh, 15 ML PO BID for 14 Days, #473 ML 0 Refills Swish and spit Prov:BOONE DAWN MD 01/19/25 Clindamycin HCl (Clindamycin HCl) 300 Mg Capsule, 1 CAP PO QID for 10 Days, #40 CAP 0 Refills Prov:BOONE DAWN MD 01/19/25 Clindamycin HCl (Clindamycin HCl) 300 Mg Capsule, 1 CAP PO QID for 10 Days, #40 CAP 0 Refills Prov:IAM MONTERROSO 11/29/24 Ibuprofen (Ibuprofen 800 mg Tab) 800 Mg Tab, 800 MG PO Q8H PRN for fever or pain, #30 TAB 0 Refills Prov:IAM MONTERROSO 11/29/24 Albuterol Sulfate (Ventolin Hfa) 90 Mcg Hfa.aer.ad, 2 PUFF IH Q4HPRN PRN for wheezing for 30 Days, #18 GM 0 Refills Prov:CARIN NOLAN MD 11/05/24 Ibuprofen (Ibuprofen 800 mg Tab) 800 Mg Tab, 800 MG PO Q8H PRN for fever or pain, #30 TAB 0 Refills Prov:IAM MONTERROSOP 03/08/24 Clindamycin HCl (Clindamycin HCl) 300 Mg Capsule, 1 CAP PO QID for 10 Days, #40 CAP 0 Refills Prov:IAM MONTERROSO 03/08/24 Acetaminophen (Tylenol) 500 Mg Tab, 1 TAB PO Q6HPRN PRN for pain or fever for 5 Days, #30 TAB 0 Refills Prov:CARIN NOLAN MD 03/08/24 Methocarbamol (Methocarbamol) 500 Mg Tablet, 1 TAB PO TID for 10 Days, #30 TAB 0 Refills Prov:ARIADNA LEE CNP 03/05/24 Past Medical History Past Medical History: Asthma Medical History Other: CHRONIC BACK PAIN Past Surgical History: Tonsillectomy Surgical History Other: None Family History Family History: Negative Social History Social History: Smokers, Lives with family ROS Dictation CONSTITUTIONAL: Negative except for HPI HEAD/FACE: Negative except for HPI EENT: Negative except for HPI RESPIRATORY: Negative except for HPI GASTROINTESTINAL/ABDOMINAL: Negative except for HPI GENITOURINARY: Negative except for HPI MUSCULOSKELETAL: Negative except for HPI INTEGUMENTARY: Negative except for HPI NEUROLOGICAL/PSYCH: Negative except for HPI HEMATOLOGIC/LYMPHATIC: Negative except for HPI All Systems Negative, Except as noted above. 13 point review of systems assessed and all negative except for above. Physical Exam Physical Exam Dictation Vital Signs reviewed General Appearance: Alert, oriented x 3, no acute distress, well developed, nourished. Head and Face: non-traumatic. Eyes: PERRL, pink conjunctivas, eyelid no trauma, anterior chamber with arcus senilis. Ears: Pinnas intact and no signs of trauma or erythema ear canals clear and no discharge TM no erythema Nose: No discharge, no bleeding. Oropharynx: Mouth normal, tongue pink, pharynx clear,no erythema, tonsils no exudates, no abscesses noted, mucous membrane moist Neck: Supple, non-tender, no thyromegaly, no masses, no JVD, no bruits Breast:Deferred Chest:No tenderness, no crepitus, no paradoxical movement, no retractions Lungs:Clear, well-ventilated, symmetric, no rales, no wheezing, no rhonchi, no stridor, good breath sounds bilaterally Heart: Regular rate, regular rhythm, no murmur, no gallops Vascular: no peripheral edema, Abdomen: Soft, positive bowel sounds, nondistended, no guarding, nontender, no rebound, no masses no hepatomegaly, no splenomegaly, no Moreira's sign, no hernias. Rectal: Deferred Genital: Deferred Neurological: Normal speech, motor function intact, sensory function intact Musculoskeletal: Neck nontender, full range of motion, back nontender, full range of motion, Extremities: nontender, full range of motion Skin: Color pink, dry, no turgor, no rash, no lacerations, no abrasions, no contusions. Lymphatic: Deferred MDM MDM: Differential diagnosis: Medication refill, wellness examination, asthma There are no social concerns with this patient. Prescription drug management Prescriptions will include: ProAir inhaler Medical management and examination interpretation discussions were had by me with other qualified healthcare professionals as indicated for the patient's care. ED Course Vital Signs Date Time Temp Pulse Resp B/P (MAP) Pulse Ox O2 Delivery O2 Flow Rate FiO2 03/18/25 19:51 97.9 60 18 153/85 100 Room Air DX & DISP Disposition: Discharge Departure Impression: Primary Impression: Medication refill Additional Impression: History of asthma Condition: Stable Scripts Albuterol Sulfate (Proair Respiclick) 90 Mcg Aer.pow.ba 2 PUFF IH Q4HPRN PRN for shortness of breath, #1 EACH 0 Refills Prov: TORRI FONTANEZ PAC 03/18/25 Referrals: SELF,REFERRAL (PCP) Time of Disposition: 20:42 I have reviewed the case, and I agree with, Diagnosis and Plan I performed the substantive portion of the visit. I have reviewed and personally made and approve the management plan that is documented in the note by myself or the MARGY. I acknowledge for responsibility for the patient's management plan. TORRI FONTANEZ PAC Mar 18, 2025 20:43
[2025-03-18 21:03] VITALS: BP 127/83; PULSE 70; RESP 16; TEMP 98; O2SAT 99
== END 2025-03-18 21:04 | disposition home or self-care (01) ==
LOC: EDH 19:05
DX: J45.909 Unspecified asthma, uncomplicated (principal); Z76.0 Encounter for issue of repeat prescription; G89.29 Other chronic pain; F17.200 Nicotine dependence, unspecified, uncomplicated; Z88.1 Allergy status to other antibiotic agents; Z90.89 Acquired absence of other organs
CPT/HCPCS: 99282

== ENCOUNTER 2025-04-10 08:59 | Emergency (ER) | payer SELFPAY ==
[~2025-04-10] VITALS: Ht 180.3 cm; Wt 74.8 kg
[2025-04-10 09:01] VITALS: BP 127/70; PULSE 77; RESP 20; TEMP 98.9
--- NOTE | 2025-04-10 09:07 | NUR ---
no signs or symptoms of acute distress noted at this time.
--- NOTE | 2025-04-10 09:12 | ERN ---
General Chief Complaint: Medication Refill Stated Complaint: PROAIR DAMAGED REQUESTING REFILL Time Seen by MD: 09:04 Source: patient History of Present Illness Initial Comments Patient is a 24-year-old male coming in for medication refill. Per patient he got his pro air inhaler wet and he believes it is not working. Patient states he has not followed up with a his PCP. He also states that he is not having any symptoms at the moment. Allergies: Coded Allergies: ceftriaxone (Unverified Allergy, Unknown, 01/05/21) Home Meds Active Scripts Albuterol Sulfate (Proair Respiclick) 90 Mcg Aer.pow.ba, 2 PUFF IH Q4HPRN PRN for shortness of breath, #1 EACH 0 Refills Prov:TORRI FONTANEZ PAC 03/18/25 Doxycycline Hyclate (Doxycycline Hyclate) 100 Mg Capsule, 1 CAP PO BID for 10 Days, #20 CAP 0 Refills Prov:CARIN NOLAN MD 03/13/25 Hydrocortisone (Cortizone 10) 1 % Gel..gram., 28 GM TP BID for 7 Days, #1 TUBE Prov:CARIN NOLAN MD 03/13/25 Albuterol Sulfate (Ventolin Hfa/Proventil Hfa/Proair Hfa) 90 Mcg Puff, 1 PUFF IH Q4H PRN for SHORTNESS OF BREATH for 5 Days, #1 INH 0 Refills PHARMACY TO DISPENSE 1 INHALER FOR USE Prov:ARIADNA LEE MANAGER EXCHANGE 02/17/25 Ibuprofen (Ibuprofen) 800 Mg Tablet, 800 MG PO Q8H PRN for PAIN, #15 TAB 0 Refills Prov:BOONE DAWN MD 01/19/25 Chlorhexidine Gluconate (Peridex Oral Rinse) 0.12 % Mwsh, 15 ML PO BID for 14 Days, #473 ML 0 Refills Swish and spit Prov:BOONE DAWN MD 01/19/25 Clindamycin HCl (Clindamycin HCl) 300 Mg Capsule, 1 CAP PO QID for 10 Days, #40 CAP 0 Refills Prov:BOONE DAWN MD 01/19/25 Clindamycin HCl (Clindamycin HCl) 300 Mg Capsule, 1 CAP PO QID for 10 Days, #40 CAP 0 Refills Prov:IAM MONTERROSO 11/29/24 Ibuprofen (Ibuprofen 800 mg Tab) 800 Mg Tab, 800 MG PO Q8H PRN for fever or pain, #30 TAB 0 Refills Prov:IAM MONTERROSO 11/29/24 Albuterol Sulfate (Ventolin Hfa) 90 Mcg Hfa.aer.ad, 2 PUFF IH Q4HPRN PRN for wheezing for 30 Days, #18 GM 0 Refills Prov:CARIN NOLAN MD 11/05/24 Ibuprofen (Ibuprofen 800 mg Tab) 800 Mg Tab, 800 MG PO Q8H PRN for fever or pain, #30 TAB 0 Refills Prov:IAM MONTERROSO 03/08/24 Clindamycin HCl (Clindamycin HCl) 300 Mg Capsule, 1 CAP PO QID for 10 Days, #40 CAP 0 Refills Prov:IAM MONTERROSO 03/08/24 Acetaminophen (Tylenol) 500 Mg Tab, 1 TAB PO Q6HPRN PRN for pain or fever for 5 Days, #30 TAB 0 Refills Prov:CARIN NOLAN MD 03/08/24 Methocarbamol (Methocarbamol) 500 Mg Tablet, 1 TAB PO TID for 10 Days, #30 TAB 0 Refills Prov:ARIADNA LEE CNP 03/05/24 Past Medical History Past Medical History: Asthma Medical History Other: CHRONIC BACK PAIN Past Surgical History: Tonsillectomy Surgical History Other: None Family History Family History: Negative Social History Social History: Smokers, Lives with family ROS Dictation CONSTITUTIONAL: No chills, no fever, no weakness, no diaphoresis, no malaise. HEAD/FACE: No signs of trauma. EENT: No eye pain, no blurred vision, no tearing, no double vision, no ear pain, no ear discharge, no nose pain, no nasal congestion, no throat pain, no throat swelling, no mouth pain. RESPIRATORY: No cough, no orthopnea, no SOB, no stridor, no wheezing. CARDIOVASCULAR: No chest pain, no edema, no palpitations, no syncope. GASTROINTESTINAL/ABDOMINAL: No abdominal pain, no constipation, no diarrhea, no nausea, no vomiting. GENITOURINARY: No abnormal discharge, no dysuria, no frequent urination, no hematuria. No complaints of pain in the genitals. MUSCULOSKELETAL: No back pain, no gout, no joint pain, no joint swelling, no muscle pain, no muscle stiffness, no neck pain. INTEGUMENTARY: No change in color, no change in hair/nails, no dryness, no lesion, no lumps, no rash. NEUROLOGICAL/PSYCH: No anxiety, not depressed, no emotional problem, no headache, no numbness, no pre-existing deficit, no history of seizures, no tremors, no weakness. HEMATOLOGIC/LYMPHATIC: Not anemic, no history of blood clots, no apparent bleeding, no bruising, glands not swollen. All Systems Negative, Except as Noted. Physical Exam Physical Exam Dictation VITAL SIGNS: Reviewed. GENERAL APPEARANCE: Alert, oriented x3, no acute distress, obese. HEAD AND FACE: Non-traumatic. EYES: PERRL, pink conjunctivas, eyelid no trauma, anterior chamber clear. NOSE: No discharge, no bleeding. NECK: Supple, non-tender, no thyromegaly, no masses, no JVD, no bruits. BREAST: Deferred. CHEST: , no paradoxical movement, no retractions. LUNGS: Clear, well-ventilated, symmetric, HEART: Regular rate, regular rhythm, no murmur, no gallops. VASCULAR: No peripheral edema. ABDOMEN: Soft, positive bowel sounds, nondistended, no guarding, nontender, no rebound, no masses no hepatomegaly, no splenomegaly, no Moreira's sign, no hernias. RECTAL: Deferred. GENITAL: Deferred. NEUROLOGICAL: Normal speech, gross motor function intact, gross sensory function intact. MUSCULOSKELETAL: Neck nontender, full range of motion, back nontender, full range of motion. EXTREMITIES: Nontender, full range of motion. SKIN: Color pink, dry, no turgor, no rash, no lacerations, no abrasions, no contusions. LYMPHATICS: Deferred. Results Laboratory and Microbiology Labs Reviewed?: Yes MDM MDM: Differential diagnosis: Medication refill, history of asthma, Rationale: Tests considered and ordered secondary to shared decision making include: Previous outside records reviewed: Old ER visits. Risk of complication and/or morbidity or mortality of patient management: None Medications-Per medication reconciliation Need for hospitalization: Patient does not meet criteria for hospitalization. Need for emergency major/minor surgery: No Patient is a 24-year-old male coming in for a medication refill. Per patient he got his ProAir wet. I did advise him to follow up with his PCP for long-term management patient does keep coming in to the ER to have medication refills but I did advise him the this was not an emergency since patient is not having any symptoms. I advised him to follow up with a list of primary care physicians in the area. A list he will be provided. ED Course Vital Signs Date Time Temp Pulse Resp B/P (MAP) Pulse Ox O2 Delivery O2 Flow Rate FiO2 04/10/25 09:01 99.0 77 20 127/70 99 Room Air DX & DISP Disposition: Discharge Departure Impression: Primary Impression: Medication refill Condition: Stable Additional Instructions: FOLLOW-UP WITH PRIMARY CARE PROVIDER IN 1 TO 2 DAYS. TAKE MEDICATIONS DIRECTED HERE IN THE EMERGENCY ROOM. OKAY TO CONTINUE HOME MEDICATIONS UNLESS OTHERWISE DISCUSSED DURING YOUR VISIT IN THE EMERGENCY ROOM TODAY. RETURN TO YOUR NEAREST EMERGENCY ROOM IF SYMPTOMS WORSEN OR IF THERE IS NO IMPROVEMENT. CALL 911 IF YOU NEED IMMEDIATE ASSISTANCE. TAKE TYLENOL [id number] NEEDED AND IF NO CONTRAINDICATIONS ARE PRESENT. INCREASE ORAL HYDRATION. A WOUND CULTURE OR URINE CULTURE WAS ORDERED HERE IN THE EMERGENCY ROOM DEPARTMENT PLEASE FOLLOW-UP WITH PRIMARY CARE PROVIDER AND ADVISE THEM TO GET REPORTS FROM OUR FACILITY. IF YOU HAD ANY SANJAY WRAP/SPLINTS THAT WERE APPLIED HERE, PLEASE DO NOT REMOVE THEM UNTIL YOU SEE YOUR PRIMARY CARE OR SPECIALTY. Referrals: Referrals: SELF,REFERRAL (PCP) PHIL MEDEIROS Time of Disposition: 09:11 CARIN NOLAN MD Apr 10, 2025 09:12
== END 2025-04-10 09:15 | disposition home or self-care (01) ==
LOC: EDH 08:59
DX: Z04.89 Encounter for examination and observation for other specified reasons (principal); F17.200 Nicotine dependence, unspecified, uncomplicated; J45.909 Unspecified asthma, uncomplicated; Z88.1 Allergy status to other antibiotic agents; Z90.89 Acquired absence of other organs
CPT/HCPCS: 99282